=== PATIENT | female | born 1995 | race Caucasian/White ===

== ENCOUNTER 2020-11-20 15:39 | Inpatient (IN) | payer BC ==
[~2020-11-20] VITALS: Ht 167.6 cm; Wt 123.5 kg
--- NOTE | 2020-11-20 15:46 | NUR ---
BIB [facility] STATES THE PT HAD PAIN SINCE FEBURARY IN THE EPIGASTIC AND VOMMITING WOULD BE THE ONLY THING TO RELIEVE PAIN. PT WAS AT THE TIME AND WAS SEEN BY A DOCTOR AND BELIEVED IT HAD TO DO WITH HER , BEING THE FIRST. HER BABY WAS BORN September AT 37WEEKS/40. PT CONTINUED TO HAVE PAIN AND SYMPTOMS EVEERY 3-4 DEPENDING ON WHAT SHE ATE AND PAIN FOLLOWED. THIS AM 0300 PAIN WAS WORSE DECIDED TO GO TO [facility] AT 10AM THERE DID ULTRASOUND.SAID HAD GALL STONE IN GALL BLADDER. WAS SENT HERE BY [facility].
[2020-11-20] MEDS ORDERED: KETOROLAC 30 MG/1 ML IV PRN (17:00)
[2020-11-20] MEDS ORDERED: ONDANSETRON ODT 4 MG PO PRN (17:00)
[2020-11-20] MEDS ORDERED: PLEASE ENTER ALLERGIES MC SCH (17:00)
[2020-11-20] MEDS ORDERED: ACETAMINOPHEN 325 MG TABLET PO PRN (17:00)
[2020-11-20] MEDS ORDERED: MORPHINE SULFATE 4 MG/ML, 1ML IVPush PRN (17:00)
[2020-11-20] MEDS ORDERED: ONDANSETRON 2MG/ML, 2ML IVPush PRN (17:00)
[2020-11-20] MEDS ORDERED: SODIUM CHLORIDE 0.9% 1,000 ML IV SCH (17:00)
--- NOTE | 2020-11-20 17:08 | NUR ---
back from mri
--- NOTE | 2020-11-20 17:08 | NUR ---
REPORT GIVEN TO FLOOR RN TO ASSUME CARE
[2020-11-20 18:37] LABS: INTERNATIONAL NORMALIZED RATIO 0.98 (0.93-1.1); PROTHROMBIN TIME 10.5 Seconds (9.6-11.5)
[2020-11-20 19:00] VITALS: BP 132/84
[2020-11-20] MEDS: CEFTRIAXONE 2 GM in DEXTROSE 5% 50 ML IVPB SCH (20:12)
[2020-11-20] MEDS: METRONIDAZOLE PMX 500MG/100ML 100 ML IV SCH (20:52)
[2020-11-21 00:14] VITALS: BP 126/75
[2020-11-21] MEDS: METRONIDAZOLE PMX 500MG/100ML 100 ML IV SCH ×3 (04:59→21:07)
[2020-11-21 05:14] LABS: ALANINE AMINOTRANSFERASE 97 U/L (12-78); ALBUMIN 2.8 g/dL (3.4-5.0); ANION GAP 5 mmol/L (5-15); CALCIUM 8.1 mg/dL (8.5-10.1); CHLORIDE 111 mmol/L (98-107)
[2020-11-21 05:16] LABS: BASOPHILS % (AUTO) 1 % (0-1); EOSINOPHILS % (AUTO) 3 % (1-7); LYMPHOCYTES % (AUTO) 35 % (22-44); MEAN CORPUSCULAR HGB CONC 33.5 g/dL (32.4-35.8); MEAN PLATELET VOLUME 9.1 fL (7.4-10.4); MONOCYTES % (AUTO) 9 % (2-9); NEUTROPHILS % (AUTO) 53 % (42-75); PLATELET COUNT 289 x10^3/uL (130-400); RED BLOOD COUNT 4.01 x10^6/uL (3.82-5.3); RED CELL DISTRIBUTION WIDTH 13.8 % (9.6-15.2)
[2020-11-21 05:17] LABS: ALKALINE PHOSPHATASE 115 U/L (45-117); BILIRUBIN,TOTAL 1.3 mg/dL (0.2-1.0); CREATININE 0.87 mg/dL (0.55-1.02); TOTAL PROTEIN 6.7 g/dL (6.4-8.2)
[2020-11-21 07:29] VITALS: BP 112/71
[2020-11-21] MEDS ORDERED: CEFTRIAXONE 1,000 MG IV SCH (09:00)
[2020-11-21 11:27] LABS: HCG UR SG 1.012 (1.003-1.030)
[2020-11-21 12:26] VITALS: BP 111/67
[2020-11-21] MEDS ORDERED: EPINEPHRINE 1 MG/ML, 1ML ONE (13:18)
[2020-11-21] MEDS ORDERED: BUPIVACAINE/PF 0.5% ONE (13:18)
[2020-11-21] MEDS ORDERED: METR500T PO (14:02)
[2020-11-21] MEDS ORDERED: AMOX-291 PO (14:02)
[2020-11-21] MEDS ORDERED: ACET325T26 PO (14:02)
[2020-11-21] MEDS ORDERED: INDOCYANINE GREEN 25 MG VIAL ONE (15:54)
[2020-11-21] MEDS ORDERED: MIDAZOLAM 1 MG/ML, 2ML ONE (15:56)
[2020-11-21] MEDS ORDERED: FENTANYL PF 250 MCG/5ML ONE (15:56)
[2020-11-21] MEDS ORDERED: CEFOTETAN 2 GM ONE (15:59)
[2020-11-21] MEDS ORDERED: ONDANSETRON 2MG/ML, 2ML ONE (15:59)
[2020-11-21] MEDS ORDERED: NEOSTIGMINE 1 MG/ML, 10ML ONE (15:59)
[2020-11-21] MEDS ORDERED: PROPOFOL 10 MG/ML, 20ML ONE (15:59)
[2020-11-21] MEDS ORDERED: KETOROLAC 30 MG/1 ML ONE (15:59)
[2020-11-21] MEDS ORDERED: GLYCOPYRROLATE 0.2MG/1ML, 5ML ONE (15:59)
[2020-11-21] MEDS ORDERED: INDOCYANINE GREEN 25 MG VIAL IV ONE (16:30)
[2020-11-21] MEDS ORDERED: CHLORHEXIDINE 15 ML UDC PO ONE (16:30)
[2020-11-21] MEDS ORDERED: DEXAMETHASONE 4 MG/ML, 1ML ONE (16:53)
[2020-11-21] MEDS ORDERED: ACETAMINOPHEN 325 MG TABLET PO PRN (17:00)
[2020-11-21] MEDS ORDERED: PROMETHAZINE 25 MG/ML, 1ML IVPush PRN (17:00)
[2020-11-21] MEDS ORDERED: LABETALOL 5MG/ML, 20ML IV PRN (17:00)
[2020-11-21] MEDS ORDERED: HYDROmorphone 1 MG/ML, 1ML INJ IVPush PRN (17:00)
[2020-11-21] MEDS ORDERED: hydrALAzine 20 MG/ML, 1ML IV PRN (17:00)
[2020-11-21] MEDS ORDERED: OXYcodone 5 MG/5 ML ORAL.SOL UDC PO PRN (17:00)
[2020-11-21] MEDS ORDERED: HALOPERIDOL 5 MG/ML IV PRN (17:00)
[2020-11-21] MEDS ORDERED: morphine SULFATE 10 MG/ML, 1ML IVPush PRN (17:00)
[2020-11-21] MEDS ORDERED: FENTANYL PF 100 MCG/2ML IV PRN (17:00)
[2020-11-21] MEDS ORDERED: SODIUM CHLORIDE 0.9% 1,000 ML IV SCH (17:00)
[2020-11-21] MEDS ORDERED: MEPERIDINE/PF 25MG/0.5ML IVPush PRN (17:00)
[2020-11-21] MEDS ORDERED: FENTANYL PF 100 MCG/2ML ONE ×5 (17:16→17:59)
[2020-11-21] MEDS ORDERED: OXYcodone 5 MG/5 ML ORAL.SOL UDC ONE (17:59)
[2020-11-21] MEDS ORDERED: MEPERIDINE/PF 25MG/ML,1ML ONE (18:16)
[2020-11-21] MEDS ORDERED: PROMETHAZINE 25 MG/ML, 1ML ONE (18:45)
[2020-11-21] MEDS ORDERED: ONDANSETRON ODT 4 MG PO PRN (19:30)
[2020-11-21 20:00] VITALS: BP 121/79
[2020-11-21] MEDS: CEFTRIAXONE 2 GM in DEXTROSE 5% 50 ML IVPB SCH (20:06)
[2020-11-21] MEDS: ACETAMINOPHEN 500 MG TABLET PO SCH (20:13)
[2020-11-21] MEDS ORDERED: OXYcodone IR 5MG TABLET PO PRN (22:10)
[2020-11-21] MEDS: LACTATED RINGERS 1,000 ML IV SCH (22:31)
[2020-11-22 00:14] VITALS: BP 119/76
[2020-11-22] MEDS: ACETAMINOPHEN 500 MG TABLET PO SCH ×2 (01:52→08:25)
[2020-11-22] MEDS: METRONIDAZOLE PMX 500MG/100ML 100 ML IV SCH (04:38)
[2020-11-22 04:58] LABS: ALBUMIN 2.7 g/dL (3.4-5.0); TOTAL PROTEIN 6.9 g/dL (6.4-8.2)
[2020-11-22 05:00] LABS: BILIRUBIN, DIRECT 0.1 mg/dL (0.1-0.2); BILIRUBIN,INDIRECT 0.9 mg/dL (0.0-2.0)
[2020-11-22 07:30] VITALS: BP 121/72
[2020-11-22] MEDS: LACTATED RINGERS 1,000 ML IV SCH (08:25)
== END 2020-11-22 11:55 | disposition home or self-care (01) | DRG 769 ==
LOC: ED 16:08 → EDIP 16:30 → 4NE 17:58
PROVIDERS: ADMIT Family Medicine; ATTEND Family Medicine
PROC: 8E0W4CZ Robotic Assisted Procedure of Trunk Region, Percutaneous Endoscopic Approach (ICD-10-PCS; 2020-11-21)
PROC: BF131ZZ Fluoroscopy of Gallbladder and Bile Ducts using Low Osmolar Contrast (ICD-10-PCS; 2020-11-21)
PROC: 0FT44ZZ Resection of Gallbladder, Percutaneous Endoscopic Approach (ICD-10-PCS; principal; 2020-11-21 17:00)
DX: O99.63 Diseases of the digestive system complicating the puerperium (principal); K80.00 Calculus of gallbladder with acute cholecystitis without obstruction; Z20.822 Contact with and (suspected) exposure to COVID-19; E66.01 Morbid (severe) obesity due to excess calories; O99.215 Obesity complicating the puerperium; Z82.49 Family history of ischemic heart disease and other diseases of the circulatory system
CPT/HCPCS: 36415; 96374; 99285; S0020; 74181; 80053; 80076; 81025; 83690; 85025; 85610; 87635; 88304; 93005; G0378; J0171; J0696; J1100; J1885; J2175; J2250; J2405; J2550; J2704; J2710; J3010; J7030; J7120